=== PATIENT | female | born 1945 | race Caucasian/White ===

== ENCOUNTER → 2017-08-12 | Outpatient (CLI) | payer MEDICARE, OTHER ==
[~2017-08-12] MED LIST: ALEVE220 M1 PO; CELEXA40 M1 PO; DESYREL-DPS50 MG PO; EFFEXOR XR150 MG PO; FEOSOL325 MG PO; GLUCOPHAGE500 MG PO; KLONOPIN0.5 MG PO; MELATONIN PO; MIRALAX17 GM PO; NATURAL TEARS OU; NORVASC5 MG PO; SYNTHROID DPS0.05 MG PO; TYLENOL325 MG PO; VITAMIN C250 MG PO; VITAMIN D PO; ZANTAC150 MG PO
== END | disposition home or self-care (01) ==
DX: Z12.31 Encounter for screening mammogram for malignant neoplasm of breast (principal)